=== PATIENT | male | born 1955 | race Caucasian/White ===

== ENCOUNTER 2021-04-27 13:24 | Emergency (ER) | payer MEDICARE ==
[~2021-04-27] VITALS: Ht 177.8 cm; Wt 81.5 kg
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
[2021-04-27] MEDS ORDERED: ACETAMINOPHEN 500 MG TABLET ONE (15:21)
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
[2021-04-27] MEDS ORDERED: ACETAMINOPHEN 500 MG TABLET PO ONE (15:30)
[2021-04-27 15:59] LABS: BASOPHILS % (AUTO) 0 % (0-1); EOSINOPHILS % (AUTO) 1 % (1-7); LYMPHOCYTES % (AUTO) 16 % (22-44); MEAN CORPUSCULAR HGB CONC 34.1 g/dL (33.2-36.2); MEAN PLATELET VOLUME 7.5 fL (7.4-10.4); MONOCYTES % (AUTO) 6 % (2-9); NEUTROPHILS % (AUTO) 77 % (42-75); PLATELET COUNT 204 x10^3/uL (130-400); RED BLOOD COUNT 5.28 x10^6/uL (4.38-5.82); RED CELL DISTRIBUTION WIDTH 13.9 % (9.4-14.8)
[2021-04-27 16:10] LABS: CALCIUM 9.4 mg/dL (8.5-10.1); CREATININE 1.12 mg/dL (0.7-1.3)
[2021-04-27 16:21] LABS: ANION GAP 4 mmol/L (5-15); CHLORIDE 109 mmol/L (98-107)
--- NOTE | 2021-04-27 17:01 | NUR ---
PT RESTING, WAITING FOR LAB AND TEST RESULTS
--- NOTE | 2021-04-27 18:12 | NUR ---
Patient/Caregiver given discharge instructions and they have confirmed that they understand the instructions. Patient ambulatory with steady gait. NAD, all questions answered appropriately, denies additional needs at this time. No personal belongings left in room after discharge.
[2021-04-27 18:13] VITALS: BP 138/89
== END 2021-04-27 18:14 | disposition home or self-care (01) ==
LOC: ED 18:00
DX: R51.9 Headache, unspecified (principal); R94.31 Abnormal electrocardiogram [ECG] [EKG]; I10 Essential (primary) hypertension
CPT/HCPCS: 36415; 70450; 80048; 85025; 93005; 99285